=== PATIENT | female | born 1985 | race Caucasian/White ===

== ENCOUNTER → 2020-12-24 00:37 | Outpatient (CLI) | payer OTHER, SELFPAY ==
[2020-12-24 20:24] LABS: SARS-CoV-2 RNA PCR Negative
== END ==
PROVIDERS: PCP Family Medicine; Visit Provider Surgery Plastic and Reconstructive Surgery
DX: Z01.812 Encounter for preprocedural laboratory examination (principal); Z20.822 Contact with and (suspected) exposure to COVID-19
CPT/HCPCS: C9803; U0003; U0005

== ENCOUNTER 2020-12-27 07:50 | Day surgery (SDC) | payer OTHER, SELFPAY ==
[2020-12-18 10:54] VITALS: BMI 20.8
[2020-12-27] VITALS (8 sets, daily range): BP systolic 94–131; BP diastolic 28–95; PULSE 45–80; RESP 14–20; TEMP 36.2–36.4; O2SAT 100; BMI 20.1
[2020-12-27] MEDS: LACTATED RINGERS 1,000 ML 30 ML IV CONT ×2 (08:30→11:21)
--- NOTE | 2020-12-27 08:57 | P.PNAN_ITS ---
Anes - Initial Pre Proc Eval Procedure: Operation Date: 12/27/20 09:30 Proposed Procedures p Bilateral Breast Augmentation Mammoplasty - Cosmo Tanner MD Date/Time: 12/27/20 08:57 Surgeon: Cosmo Tanner MD Pre Op Diagnosis: Micromastia Patient Data Age: 35 Gender: F Height: 1.79 m Weight: 64.7 kg Last Vital Signs Temp 36.2 C L 12/27/20 08:33 Pulse 80 12/27/20 08:33 Resp 16 12/27/20 08:33 BP 131/95 H 12/27/20 08:33 Pulse Ox 100 12/27/20 08:33 Allergies Allergy/AdvReac Type Severity Reaction Status Date / Time No Known Allergies Allergy Unverified 12/27/20 08:23 Home Medications Medication Instructions Recorded Confirmed Type fexofenadine 60 mg tablet 60 mg PO Q12H 11/14/20 12/18/20 History spironolactone 100 mg tablet 100 mg PO DAILY 11/14/20 12/18/20 History docusate sodium 100 mg capsule 100 mg PO DAILY #14 cap 12/13/20 12/18/20 Rx ondansetron HCl 4 mg tablet 4 mg PO Q8H #28 tablet 12/13/20 12/18/20 Rx carisoprodol 350 mg tablet 350 mg PO TID PRN #21 tablet 12/17/20 12/18/20 Rx oxycodone-acetaminophen 5 mg-325 1 tablet PO Q6H PRN #15 tablet 12/17/20 12/18/20 Rx mg tablet adapalene See Rx Instructions .ROUTE .COMPLEX 12/18/20 12/18/20 History clindamycin-benzoyl peroxide See Rx Instructions .ROUTE .COMPLEX 12/18/20 12/18/20 History Patient hx anesthesia problems: none Family hx anesthesia problems: none PMFSH Family History Family History Mother Patient's mother is in good health Father Patient's father is in good health Grandparent Breast cancer Social History Social History Smoking status: Never smoker Alcohol intake: never Substance use: never Substance use type: does not use Living arrangements: with family Gender identity (if verbalized by the patient): Female Spiritual care concerns: No Anes - Eval Final PreProcedure Day of Procedure 12/27/20 08:57 Patient weight: normal Heart: regular rate and rhythm Lungs: clear to auscultation and normal air movement Airway: Mallampati scale class II Neurological: alert and oriented Last oral intake: >/= 8 hours ASA classification: I Emergent: no Anesthetic plan: proceed Anesthesia type and monitoring: general LMA and standard monitoring Informed Consent: The patient's anesthetic plan and its attendant risks and b enefits were discussed with the patient/family/POA. Questions were solicited and answers provided to the satisfaction of the patient/family/POA.
--- NOTE | 2020-12-27 09:35 | WPDHPUPDATE1 ---
History and Physical Update Update Date/Time: 12/27/20 09:35 History and Physical has been reviewed, including an updated exam of the patient. There are NO changes in the patient's condition. Risks, benefits, and alternatives have been discussed and questions answered. Patient agrees to proceed with procedure.
--- NOTE | 2020-12-27 09:54 | PM.PROC ---
Procedure Note - Detailed Date of procedure: 12/27/20 Pre-op diagnosis: Micromastia Post-op diagnosis: same Procedure performed: Bilateral Augmentation Mammaplasty Description of procedure: She is here today for bilateral breast augmentation. Previously and again today the risks, benefits, alternatives were discussed in extensive detail. I wanted her to be very realistic about the risks involved as well as expectations. We discussed aftercare and what to monitor for. Made sure answered all of her questions to her satisfaction today and consent was obtained. Marked in the preoperative holding area with their verification. The patient was taken to the operating room placed supine on the operating table. Anesthesia was provided by anesthesiology. A surgical time-out was taken. We cleansed the skin and 1% lidocaine and 0.25% Marcaine with epinephrine was used anesthetize as a field block. She was prepped and draped in a standard sterile fashion. Tegaderm nipple Lr were placed. A 15 blade used to make an incision along the inframammary fold. Dissection was continued at 45 degree angle until the chest wall as identified. I incised the pectoralis major along its inferior border and completely released the inferior border leaving the medial border intact. I created a subpectoral pocket in the appropriate dimensions based on our preoperative planning for the implant. I then copiously irrigated with saline solution and verified a strict hemostasis. Next the use a triple antibiotic and Betadine containing solution to irrigate the pocket. I washed my gloves with the triple antibiotic and Betadine solution. We washed the implant immediately upon opening it with this solution and only opened it when we needed it. I used implant funnel and no-touch technique. The implant was introduced into the pocket using the funnel. Having verified positioning of the implant this was closed using 2-0 Vicryl followed by 3-0 Monocryl in a running subcuticular 4-0 Monocryl followed by tissue glue. Fluffs, Sterling wrap, and surgical bra were placed. Patient was awoke and taken to PACU without difficulty. All instrument sponge counts were correct at the end of the case. Anesthesia: GLMA Surgeon: Cosmo Tanner MD Estimated blood loss (mL): 20 Drains: No Packing: No Pathology: none sent Complications: No immediate complications Condition: stable Disposition: PACU Findings: Bilateral dual plane 1 augmentation Bilateral Natrelle Inspira Smooth Soft Touch Implants 360cc Right: REF SSLP-360 SN [id number] Left: REF SSLP-360 SN [id number]
[2020-12-27] MEDS: ceFAZolin SODIUM 2 GM/20 ML SW SYRINGE IV PUSH (10:19)
[2020-12-27] MEDS: LIDO 1%/EPINEPHRINE 1:100,000 20 ML VIAL 30 ML INFILTRATE (10:46)
[2020-12-27] MEDS: fentaNYL CITRATE INJ (*CRX) 100 MCG/2 ML VIAL 25 MCG IV PUSH ×3 (11:46→12:12)
--- NOTE | 2020-12-27 12:35 | WPDANESPN ---
Anes - Prog Note Post-Op Date/Time: 12/27/20 12:35 Cardiovascular status: normal Respiratory status: normal Airway patency: baseline Mental status: baseline Post-Op hydration status: normal Vital Signs: Last Vital Signs Temp 36.4 C L 12/27/20 11:21 Pulse 56 L 12/27/20 12:26 Resp 16 12/27/20 12:26 BP 124/28 L 12/27/20 12:26 Pulse Ox 100 12/27/20 12:26 Pain Score (VAS): 1 Post-procedural complaints: none Patient Feedback: Patient satisfied with anesthetic care.
== END 2020-12-27 13:15 | disposition home or self-care (01) ==
PROVIDERS: PCP Family Medicine; Visit Provider Surgery Plastic and Reconstructive Surgery
PROC: (CPT 19325; principal; 2020-12-27 09:30)
DX: N64.82 Hypoplasia of breast (principal)
CPT/HCPCS: 19325